=== PATIENT | female | born 1995 | race Caucasian/White ===

== ENCOUNTER 2019-08-01 21:22 | Emergency (ER) | payer OTHER ==
[~2019-08-01] VITALS: Ht 170.2 cm; Wt 81.7 kg
== END 2019-08-01 22:44 | disposition home or self-care (01) ==
LOC: ER 21:22
DX: F41.0 Panic disorder [episodic paroxysmal anxiety] (principal); F43.9 Reaction to severe stress, unspecified
CPT/HCPCS: 36415; 93005; 93010; 96374; 99283-25; J2060